=== PATIENT | female | born 1980 | race Caucasian/White ===

== ENCOUNTER 2021-10-27 00:49 | Emergency (ER) | payer OTHER ==
[~2021-10-27] VITALS: Ht 157.5 cm; Wt 77.1 kg
--- NOTE | 2021-10-27 01:00 | NUR ---
patient's S.O. at bedside
[2021-10-27] MEDS ORDERED: LIDOCAINE HCL 1% 20 ML VIAL IJ ONE (01:15)
[2021-10-27] MEDS ORDERED: LIDOCAINE HCL 1% 20 ML VIAL ONE (01:20)
[2021-10-27] MEDS ORDERED: TDAP DIPH,PERTUSS,TET VAC/PF 0.5 ML DISP.SYRIN IM ONE ×2 (01:29→01:30)
[2021-10-27] MEDS ORDERED: HYDROCODONE/APAP 10-325 MG TABLET ONE ×2 (01:29→04:44)
[2021-10-27] MEDS ORDERED: HYDROCODONE/APAP 10-325 MG TABLET PO ONE ×2 (01:30→04:45)
--- NOTE | 2021-10-27 01:30 | NUR ---
patient is a/ox4, NAD noted
[2021-10-27] MEDS ORDERED: ONDANSETRON ODT 4 MG TAB.RAPDIS ONE (01:31)
[2021-10-27] MEDS ORDERED: ONDANSETRON ODT 4 MG TAB.RAPDIS SL ONE (02:30)
--- NOTE | 2021-10-27 04:45 | NUR ---
took out norhi 10 and was administred to the patient
--- NOTE | 2021-10-27 05:00 | NUR ---
Patient discharged to home in stable condition. Written and verbal after care instructions given. Patient verbalizes understanding of instructions. Stressed follow up or return to ER for worsening s/s. Patient is a/ox4, NAD noted, able to walk with stready gait. Instructed patient not to drive. Patient is accompanied by S.O.
[2021-10-27 05:08] VITALS: BP 128/78
== END 2021-10-27 05:00 | disposition home or self-care (01) ==
LOC: ER 00:49
DX: S81.011A Laceration without foreign body, right knee, initial encounter (principal); W01.198A Fall on same level from slipping, tripping and stumbling with subsequent striking against other object, initial encounter; Y93.89 Activity, other specified; Y92.007 Garden or yard of unspecified non-institutional (private) residence as the place of occurrence of the external cause; Z88.2 Allergy status to sulfonamides
CPT/HCPCS: 12002; 73700; 90471; 90715; 99284; J3490; Q0162